=== PATIENT | female | born 1985 | race Caucasian/White ===

== ENCOUNTER 2018-05-06 15:30 | Inpatient (IN) | payer OTHER ==
[~2018-05-06] VITALS: Ht 162.6 cm; Wt 61.7 kg
[2018-05-06] MEDS ORDERED: PRENATAL TABLE1 EAC1 PO (19:15)
== END 2018-05-09 14:37 | disposition home or self-care, planned readmission (81) | DRG 775 ==
LOC: OB/GYN 15:30 → LDR 15:30 → OB/GYN 05-07 09:20
PROC: 10E0XZZ Delivery of Products of Conception, External Approach (ICD-10-PCS; principal; 2018-05-07)
PROC: 10907ZC Drainage of Amniotic Fluid, Therapeutic from Products of Conception, Via Natural or Artificial Opening (ICD-10-PCS; 2018-05-07)
PROC: 0W8NXZZ Division of Female Perineum, External Approach (ICD-10-PCS; 2018-05-07)
PROC: 3E033VJ Introduction of Other Hormone into Peripheral Vein, Percutaneous Approach (ICD-10-PCS; 2018-05-07)
PROC: 4A1HXCZ Monitoring of Products of Conception, Cardiac Rate, External Approach (ICD-10-PCS; 2018-05-07)
DX: O80 Encounter for full-term uncomplicated delivery (principal); Z3A.38 38 weeks gestation of pregnancy; Z37.0 Single live birth

== ENCOUNTER 2019-07-20 09:36 | Emergency (ER) | payer OTHER ==
[~2019-07-20] VITALS: Ht 162.6 cm; Wt 47.6 kg
[~2019-07-20 09:36] MED LIST: PRENATAL TABLE1 EAC1 PO
== END 2019-07-20 12:27 | disposition home or self-care (01) ==
LOC: ER 09:36
DX: R07.1 Chest pain on breathing (principal); M94.0 Chondrocostal junction syndrome [Tietze]

== ENCOUNTER 2025-05-13 09:00 | Day surgery (SDC) | payer OTHER ==
[~2025-05-13 09:00] MED LIST changes: +TRI-LO-ESTARYL1 EACH PO
[2025-05-13] MEDS ORDERED: METRONIDAZOLE/SODIUM CHLORIDE 500 MG/100 ML PIGGYBACK IV ONE (10:02)
[2025-05-13] MEDS ORDERED: CEFTRIAXONE SODIUM 2,000 MG VIAL ONE (10:02)
[2025-05-13] MEDS ORDERED: HEMOSTATIC MATRIX 1 KIT KIT TOP ONE ×2 (11:00→11:46)
[2025-05-13] MEDS ORDERED: LIDOCAINE HCL 1%/EPINEPHRINE 20ML VIAL IJ ONE ×2 (11:00→12:19)
[2025-05-13] MEDS ORDERED: BUPIVACAINE HCL/MPF 0.5% 30ML VIAL ONE ×2 (11:00→11:46)
[2025-05-13] MEDS ORDERED: DIBUCAINE 30 GM TUBE ONE ×2 (11:00→11:46)
[2025-05-13] MEDS ORDERED: POVIDONE-IODINE 118 ML BOTT TOP ONE ×2 (11:00→11:46)
[2025-05-13] MEDS ORDERED: LIDOCAINE HCL 1% 20 ML VIAL IJ ONE (11:46)
[2025-05-13] MEDS ORDERED: MORPHINE SULFATE 4 MG/ML VIAL IV ONE (18:50)
== END 2025-05-13 22:00 | disposition home or self-care (01) ==
LOC: CIR.AMB 09:00
PROVIDERS: ATTEND Colon & Rectal Surgery
DX: K64.2 Third degree hemorrhoids (principal); K64.4 Residual hemorrhoidal skin tags